=== PATIENT | female | born 1945 | race Caucasian/White ===

== ENCOUNTER 2025-02-11 18:33 | Emergency (ER) | payer OTHER, MEDICARE, SELFPAY ==
[2025-02-11 18:35] VITALS: BP 181/98; PULSE 95; RESP 18; TEMP 37.2; O2SAT 95; BMI 41.8
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
[2025-02-11 20:08] VITALS: BP 153/84; PULSE 68; RESP 18; O2SAT 97
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
[2025-02-11 20:54] VITALS: BP 155/79; PULSE 69; RESP 18; TEMP 36.7; O2SAT 97
[2025-02-11 21:00] VITALS: BP 155/79; PULSE 69; RESP 18; O2SAT 97
== END 2025-02-11 21:08 | disposition home or self-care (01) ==
PROVIDERS: Emergency Provider Emergency Medicine; Visit Provider Emergency Medicine
DX: S20.229A Contusion of unspecified back wall of thorax, initial encounter (principal); V89.2XXA Person injured in unspecified motor-vehicle accident, traffic, initial encounter
CPT/HCPCS: 71250; 72128; 93005; 99284